=== PATIENT | female | born 1970 | race Hispanic/Latino ===

== ENCOUNTER 2022-01-11 18:58 | Emergency (ER) | payer SELFPAY ==
[~2022-01-11] VITALS: Ht 154.9 cm; Wt 58.5 kg
[2022-01-11] MEDS ORDERED: PREDNISONE50 MG PO (19:35)
[2022-01-11] MEDS ORDERED: VALACYCLOVIR500 MG PO (19:35)
== END 2022-01-11 21:04 | disposition home or self-care (01) ==
LOC: FSED 19:04
DX: G51.0 Bell's palsy (principal); R20.2 Paresthesia of skin
CPT/HCPCS: 70450; 80053; 85025; 99284